=== PATIENT | male | born 1960 | race Two or more races ===

== ENCOUNTER 2020-09-15 08:35 | Emergency (ER) | payer OTHER ==
[~2020-09-15] VITALS: Ht 175.3 cm; Wt 97.5 kg
[2020-09-15 08:37] VITALS: BP 133/85
[2020-09-15] MEDS ORDERED: TETRACAINE HCL 0.5% OPTH(EYE) SOLN 4ML RIGHTEYE ONE (09:00)
[2020-09-15] MEDS ORDERED: FLUORESCEIN SOD 1 MG TEST STRIP RIGHTEYE ONE (09:00)
== END 2020-09-15 09:28 | disposition home or self-care (01) ==
LOC: ER 08:35
DX: T15.01XA Foreign body in cornea, right eye, initial encounter (principal); H00.011 Hordeolum externum right upper eyelid; F17.210 Nicotine dependence, cigarettes, uncomplicated; W22.8XXA Striking against or struck by other objects, initial encounter; Y93.89 Activity, other specified; Y92.89 Other specified places as the place of occurrence of the external cause; Y99.8 Other external cause status

== ENCOUNTER 2022-01-03 17:25 | Emergency (ER) | payer OTHER ==
[2022-01-03 17:33] VITALS: BP 147/92
== END 2022-01-04 00:49 | disposition left against medical advice (07) ==
LOC: ER 17:25
DX: R50.9 Fever, unspecified (principal); J02.9 Acute pharyngitis, unspecified; M79.10 Myalgia, unspecified site; R05.9 Cough, unspecified; Z53.21 Procedure and treatment not carried out due to patient leaving prior to being seen by health care provider

== ENCOUNTER 2022-11-19 23:10 | Emergency (ER) | payer OTHER ==
[~2022-11-19] VITALS: Ht 175.3 cm; Wt 91.6 kg
[2022-11-19 23:35] VITALS: BP 129/82
[2022-11-19] MEDS ORDERED: PROCHLORPERAZINE EDISYLATE 5 MG/ML 2ML VIAL IM ONE (23:45)
[2022-11-19 23:58] LABS: Urine Bacteria NONE SEEN /hpf (None Seen); Urine Blood Negative /uL (Negative); Urine Mucus FEW (None Seen); Urine Specific Gravity 1.022 (1.001-1.035); Urine WBC 1 /hpf (0 - 3)
[2022-11-20 00:54] LABS: Basophils # (auto) 0 10 ^3/uL (0-0.2); Basophils % (auto) 0.1 % (0.0-2.0); Eosinophils # (auto) 0.1 10 ^3/uL (0-0.8); Hematocrit 47.8 % (41.0-53.0); Hemoglobin 17.3 g/dL (13.5-17.5); Lymphocytes # (auto) 0.7 10 ^3/uL (0.4-5.4); Lymphocytes % (auto) 6.7 % (10.0-50.0); Mean Corpuscular Hemoglobin 32.1 pg (28.0-32.0); Mean Corpuscular Hgb Conc. 36.2 g/dL (32.0-36.0); Mean Corpuscular Volume 88.6 fL (80.0-100.0); Monocytes # (auto) 0.8 10 ^3/uL (0-1.3); Monocytes % (auto) 7.7 % (0.0-12.0); Neutrophils % (auto) 84.5 % (37.0-80.0); Red Cell Distribution Width 12.7 % (11.8-14.3); White Blood Cell 10.7 10^3/uL (4.4-10.8)
[2022-11-20 01:10] LABS: Albumin 3.9 g/dL (3.4-5.0); BUN/Creatinine Ratio 18.3 (10.0-20.0); Magnesium 2.3 mg/dL (1.6-2.6)
[2022-11-20 01:26] LABS: Bilirubin, Total 1.8 mg/dL (0.2-1.0); Total Protein 7.8 g/dL (6.4-8.2)
[2022-11-20 01:30] LABS: Potassium 2.8 mmol/L (3.5-5.1)
[2022-11-20] MEDS ORDERED: POTASSIUM CHL 20 Meq TABLET PO ONE (01:45)
== END 2022-11-20 03:05 | disposition left against medical advice (07) ==
LOC: ER 23:10
DX: R42 Dizziness and giddiness (principal); R51.9 Headache, unspecified; Z53.21 Procedure and treatment not carried out due to patient leaving prior to being seen by health care provider; Z79.899 Other long term (current) drug therapy
CPT/HCPCS: 36415; 70450; 71045; 80053; 81001; 83735; 84484; 85025; 93005